=== PATIENT | female | born 1985 | race Caucasian/White ===

== ENCOUNTER 2018-09-21 00:31 | Inpatient (IN) | payer BC ==
[~2018-09-21] VITALS: Ht 157.5 cm; Wt 59.5 kg
[2018-09-21] VITALS (13 sets, daily range): BP systolic 102–158; BP diastolic 58–74; PULSE 67–90; TEMP 98–98.9
[~2018-09-21 00:31] MED LIST: MOTRIN 600600 MG/TAB PO; NO HOME MEDICATIONS; PERCOCET 325 MG1 TA2 PO; PRENATAL1 TA1 PO; SENOKOT S 50 MG1 TAB PO
--- NOTE | 2018-09-21 00:45 | NUR ---
0045- Pt arrived on unit with complaints of contractions starting this evening. Pt denies any leaking of fluid or vaginal bleeding and reports normal movement. EFM and toco monitors placed. Vital signs WNL. SVE by this RN /-2. 0055- Spoke with Dr. Norman regarding pt's arrival, SVE and FHR tracing reviewed. Orders for labor admission received. 0100- IV started, labs obtained and fluids started per orders. 0110- Dr. Norman at the bedside. Plan of care reviewed. FHR tracing reviewed. 0113- SVE by Dr. Norman /0. AROM with clear fluid. MD to remain on the unit. 0135- Dr. Norman back at the bedside. 0140- SVE by Dr. Norman /+2 0150- Pt set up for delivery. 0155- Pushing started. 0220- of viable male . [place] placed on mom's abdomen. Cords clamped and cut. Care of the given to nursery RN at the bedside. 0222- of placenta. Pitocin started at 333ml/hr per order and protocol. Fundus firm with moderate lochia.
[2018-09-21 01:28] LABS: BASO # 0.1 (0.0-0.2); BASO % 0.3 % (0.0-2.0); EOS # 0.1 (0.0-0.7); EOS % 0.5 % (0-4.0); GRAN # 14.9 (1.4-6.5); GRAN % 72.3 % (42.2-75.2); HEMOGLOBIN 11.4 g/dl (12.5-16.0); LYMPH # 4.3 (1.2-3.4); LYMPH % 20.7 % (20.0-51.0); MEAN CELL VOLUME 95 fl (80.0-100.0); MEAN CORPUSCULAR HEMOGLOBIN 32 pg (27.0-31.0); MEAN CORPUSCULAR HGB CONC 33 g/dl (33.0-37.0); MEAN PLATELET VOLUME 9.6 fl (7.4-10.4); MONO # 1.1 (0.1-0.6); MONO % 5.3 % (1.7-9.3); PLATELET COUNT 218 K/mm3 (130-400); RED BLOOD COUNT 3.62 M/mm3 (4.10-5.30); REDCELL DISTRIBUTION WIDTH-CV 13.2 % (11.5-14.5)
[2018-09-21 01:30] LABS: HEMATOCRIT 34.5 % (37.0-47.0)
--- NOTE | 2018-09-21 04:45 | NUR ---
Pt up to the bathroom with standby assist and without complications. Pt able to void. Shalonda-care done. Pt transferred to room 214 ambulatory. Oriented to room, bed and call light within reach. Plan of care reviewed.
[2018-09-22 00:01] VITALS: BP 110/66; PULSE 80; TEMP 98.4
[2018-09-22 08:30] VITALS: BP 116/72; PULSE 78; TEMP 98.2
[2018-09-22] MEDS ORDERED: IBU800 M1 PO (09:32)
--- NOTE | 2018-09-22 10:37 | NUR ---
Baby was having a hearing test so I was not able to visit.
--- NOTE | 2018-09-22 11:35 | NUR ---
Patient was with family and getting ready for discharge. I congratulated them on behalf of [facility] [place].
== END 2018-09-22 11:45 | disposition home or self-care (01) | DRG 807 ==
LOC: LDRO 00:31 → OB 01:00 → LDR 01:00 → OB 05:06
PROVIDERS: Obstetrics & Gynecology; ADMIT Student in an Organized Health Care Education/Training Program
PROC: 10E0XZZ Delivery of Products of Conception, External Approach (ICD-10-PCS; principal; 2018-09-21)
PROC: 0KQM0ZZ Repair Perineum Muscle, Open Approach (ICD-10-PCS; 2018-09-21)
DX: O70.1 Second degree perineal laceration during delivery (principal); Z37.0 Single live birth; Z3A.39 39 weeks gestation of pregnancy
CPT/HCPCS: J2590; J7120